=== PATIENT | female | born 1995 | race Caucasian/White ===

== ENCOUNTER 2023-06-04 20:36 | Emergency (ER) | payer MEDICAID, SELFPAY ==
[2023-06-04] VITALS (8 sets, daily range): BP systolic 111–137; BP diastolic 72–87; PULSE 63–75; RESP 20; TEMP 36.7; O2SAT 98–99; BMI 35.5
[2023-06-04] MEDS: fentaNYL citrate/PF 100 MCG/2 ML VIAL 25 MCG IVPUSH (21:11)
--- NOTE | 2023-06-04 21:27 | ED_ITS ---
HPI - General Stated complaint: Delivered baby Time Seen by Provider: 06/04/23 21:12 Source: patient Mode of arrival: other History of Present Illness HPI Narrative: 27-year-old female, , 2 C-sections, she reports uncomplicated at this time, she was scheduled for and was due 06/23 and suspect that this was scheduled date and not necessarily the full-term gestational date, patient received all care in [place], speculates that baby was delivered at approximately 20:15. Patient arrives with baby on chest still attach to umbilical cord. Related Data Allergies Allergy/AdvReac Type Severity Reaction Status Date / Time No Known Allergies Allergy Verified 06/04/23 21:05 Review of Systems 2 Review of Systems: Pertinent positives and negatives as stated in the [facility] Past Medical History Source: nursing notes reviewed Social History Social History Advance Directives: No Advance Directives Information Provided: Yes Physical Exam 2 Vital Signs: Vital Signs: VITAL SIGNS: Reviewed. GENERAL: Well developed, well nourished, in no acute distress. HEAD: Normocephalic/atraumatic EYES: PERRLA, EOMI LUNGS: Normal breath sounds. No adventitious sounds or accessory muscle use. CARDIOVASCULAR: Regular rate and rhythm without noted murmurs ABDOMEN: Soft, non-tender, non-distended with bowel sounds. OB: Umbilical cord still attached to the baby, blood on the gurney from delivery, stable vital signs, baby is moving, gravid abdomen MUSCULOSKELETAL: No tenderness, deformities, or effusions noted on gross inspection. EXTREMITIES: No cyanosis, clubbing or edema. SKIN: Inspection of the skin reveals no rashes NEUROLOGIC: Alert and oriented x 4. Strength and sensation to light touch were grossly intact x 4. Medications Administered Discontinued Medications Generic Name Dose Route Start Last Admin Trade Name Freq PRN Reason Stop Dose Admin Fentanyl 25 mcg 06/04/23 21:05 06/04/23 21:11 Fentanyl Citrate/Pf 100 Mcg/2 Ml Vial IVPUSH 06/04/23 21:06 25 mcg ONCE ONE Administration Protocol Medical Decision Making Medical Decision Making [facility] Narrative: 27-year-old female with history and clinical presentation consistent with preop ensure versus full-term spontaneous vaginal delivery. Patient's last 1.5 years ago. 2014: Approximate spontaneous vaginal delivery time 2044: Umbilical cord cut 2054: Intact placenta delivered 2058: 30 units of Pitocin in 1 L of normal saline initiated. Patient has past medical history of asthma Speculum exam demonstrates significant clots intravaginally with a noted posterior fornix tear that does not demonstrate excessive hemorrhage, after clots and blood cleared no significant bleeding noted, massaging of fundus demonstrates firmness, patient remains hemodynamically stable. Approximate 500 cc EBL. No obvious meconium noted but baby did have brownish mucus suctioned. Spontaneous vaginal delivery at 37.1 weeks based on NIESHA: 06/24/2023. Patient accepted in transfer by Dr Guzmán Differential Diagnosis Differential Diagnoses: The differential diagnosis associated with the presentation includes Please see the discussion above Admission/Observation Consideration of admission/observation: Escalation of care including admission/observation considered Please see the discussion above Consult Healthcare Provider Management of the patient was discussed with: [employer] Please see the discussion above Lab Data 06/04/23 21:24 06/04/23 21:24 Critical Care Time Critical Care Time Critical Care Time: Yes Total Critical Care Time: 60 Attestation: I personally attest to this time spent taking care of the patient. Discharge Plan Discharge Clinical Impression: Spontaneous vaginal delivery, Multiparity, Vaginal tear resulting from childbirth Patient Disposition: [facility] Hospital Transfer Details: Obstetric floor Print Language: Indonesian
[2023-06-04 21:28] LABS: MANUAL DIFF FLAG NO
[2023-06-04 21:29] LABS: Basophils Absolute Auto 0.1 X10*3/uL (0.0-0.2); Basophils Percent Auto 0.3 % (0-2); Eosinophils Absolute Auto 0.2 X10*3/uL (0.0-0.4); Eosinophils Percent Auto 0.9 % (0-4); Hematocrit 39.9 % (37.0-47.0); Hemoglobin 13.3 g/dl (12.0-16.0); Imm Gran Abs Auto 0.14 X10*3/uL (0.00-0.03); Imm Gran Pct Auto 0.7 % (0.0-0.4); Lymphocytes Absolute Auto 2.3 X10*3/uL (1.2-4.9); Lymphocytes Percent Auto 11.4 % (20-40); Mean Corpuscular HGB Conc 33.3 g/dl (31.0-35.0); Mean Corpuscular Hemoglobin 26.8 pg (27.0-33.0); Mean Corpuscular Volume 80.3 fL (80.0-98.0); Mean Platelet Volume 10.2 fL (9.4-12.3); Monocytes Absolute Auto 1.2 X10*3/uL (0.1-1.2); Neutrophils Absolute Auto 16.5 x10*3/uL (2.0-8.3); Neutrophils Percent Auto 80.7 % (45-73); Platelet Count 260 X10*3/uL (160-400); Red Blood Count 4.97 X10*6/uL (4.20-5.50); Red Cell Distribution Width 13.7 % (11.0-16.0); White Blood Count 20.5 X10*3/uL (4.8-10.8)
[2023-06-04 21:42] LABS: Anion Gap 14 (12-20); Blood Urea Nitrogen 9 mg/dL (9-16); Carbon Dioxide 19 mmol/L (22-29); Chloride 109 mmol/L (96-108); Estimated Glomerular Filt Rate > 60; Glucose Random 88 mg/dL (60-115); Potassium 3.9 mmol/L (3.3-5.1); Sodium 138 mmol/L (135-145)
--- NOTE | 2023-06-04 22:48 | PC.NURSE ---
pt arrived at [facility]ox. 2034, noted to have in hand, pt helped to stretcher from car, pt wheeled immediately into ED room - at bedside. 2044- Umbilical cord cut by provider, 20G placed in right AC. 2054- Placenta delivered. 2058- Pitocin started per provider order, one liter of normal saline hanging. pt reports being , reports last two deliveries were C sections and planned on having C section for this baby. provider reports fundus firm, bleeding controlled. IV access obtained in right back of forearm, 20G. pt medicated for pain per apr. 2129- pt attempting to breast feed , skin to skin. Nurse to Nurse reoport given at 2214 to Pam RAMIREZ. EMS at bedside at 2199. Placenta taken by EMS.
== END 2023-06-04 23:38 | disposition short-term general hospital (02) ==
PROVIDERS: Student in an Organized Health Care Education/Training Program; Emergency Provider Student in an Organized Health Care Education/Training Program
DX: O71.4 Obstetric high vaginal laceration alone (principal); O34.219 Maternal care for unspecified type scar from previous cesarean delivery; Z3A.37 37 weeks gestation of pregnancy; Z37.0 Single live birth
CPT/HCPCS: 36415; 59414; 80048; 85025; 86704; 86706; 87340; 96374; 99285; J2590; J3010